=== PATIENT | female | born 2000 | race Hispanic/Latino ===

== ENCOUNTER 2024-06-30 16:44 | Emergency (ER) | payer BC ==
[~2024-06-30] VITALS: Ht 154.9 cm; Wt 63.5 kg
[2024-06-30] MEDS: ACETAMINOPHEN 325 MG TAB PO STA (18:20)
[2024-06-30] MEDS ORDERED: KETOROLAC TROME10 MG PO (18:21)
[2024-06-30] MEDS ORDERED: AZITHROMYCIN250 MG PO (18:21)
[2024-06-30] MEDS: IBUPROFEN 600 MG TAB PO STA (18:26)
[2024-06-30 18:41] LABS: STREPTOCOCCUS GRP A ANTIGEN NEGATIVE (NEGATIVE)
[2024-06-30 18:47] LABS: CORONAVIRUS COVID-19 AG NEGATIVE (NEGATIVE); INFLUENZA A AG NEGATIVE (NEGATIVE); INFLUENZA B AG NEGATIVE (NEGATIVE)
[2024-06-30 20:16] VITALS: PULSE 104; RESP 17; TEMP 99; O2SAT 99
== END 2024-06-30 20:16 | disposition home or self-care (01) ==
LOC: ER 17:57
DX: R50.9 Fever, unspecified (principal); B34.9 Viral infection, unspecified; R11.2 Nausea with vomiting, unspecified; R51.9 Headache, unspecified
CPT/HCPCS: 83518; 87070; 99282